=== PATIENT | female | born 1970 | race Caucasian/White ===

== ENCOUNTER 2017-08-16 00:11 | Emergency (ER) | payer OTHER ==
[2017-08-16] MEDS ORDERED: NS 0.9% 1000 ML* 1,000 ML IV ONE ×2 (00:34→02:18)
[2017-08-16] MEDS ORDERED: Digoxin IV* 0.5 MG/2 ML AMP (0.25 MG/ML) IV SLOW PU ONE (00:36)
[2017-08-16] MEDS ORDERED: Diltiazem IV* 5 MG/ML 5 ML VIAL (for loading dose/IV Push) (25 MG) IV SLOW PU ONE (00:36)
[2017-08-16 00:51] LABS: ABS Basophils 0.1 10^3/ul (0-0.2); ABS Eosinophils 0.1 10^3/ul (0-0.6); ABS Lymphocytes 3.7 10^3/ul (1.0-4.8); ABS Monocytes 0.7 10^3/ul (0-0.8); ABS Neutrophils 4.4 10^3/ul (1.5-7.7); ABS Nucleated RBC 0 10^3/ul; Eosinophil % 1.2 % (0-6); Hematocrit 42 % (35-47); Hemoglobin 14.8 g/dl (12.0-16.0); Lymphocyte % 40.9 % (25-47); Mean Corpuscular HGB Conc 35 g/dl (31-36); Mean Corpuscular Hemoglobin 33 pg (27-31); Mean Corpuscular Volume 94 fL (80-97); Mean Platelet Volume 8 um3 (7.4-10.4); Nucleated Red Blood Cells % 0.1; Platelet Count 240 10^3/ul (150-450); Red Blood Count 4.49 10^6/ul (4.0-5.4); Red Cell Distribution Width 13 % (10.5-15)
[2017-08-16 01:05] LABS: INR 0.82 (0.77-1.02)
[2017-08-16 01:06] LABS: EGFR Non-African American 69.5 (>60)
[2017-08-16] MEDS ORDERED: Potassium Chlor TAB* 20 MEQ TAB.ER PO ONE (02:14)
[2017-08-16] MEDS ORDERED: Midazolam* 1 MG/ML 5 ML VIAL (5 MG) SLOW PUSH ONE (03:19)
[2017-08-16] MEDS ORDERED: fentaNYL* 50 MCG/ML 2 ML VIAL (100 MCG VIAL) IV SLOW PU ONE (03:20)
[2017-08-16 04:46] VITALS: BP 108/68
--- NOTE | 2017-08-16 04:49 | ED ---
Jacqueline Acevedo Julia, scribed for Jamilah Robins MD on 08/16/17 at 0032 . Palpitations / Dysrhythmia - HPI Summary HPI Summary: This patient is a 47 year old F presenting to [facility] with a chief complaint of palpitations since 22:00 08/15/17. Patient reports sensation of heart racing. Patient denies pain and SOB. Symptoms aggravated by nothing. Symptoms alleviated by nothing. Patient does not regularly use medication other than oral contraceptives. She states no caffeine, cold medicine, or alcohol use. Patient has history of PVCs about three years ago. - History of Current Complaint Chief Complaint: EDDysrhythmPalp Time Seen by Provider: 08/16/17 00:26 Hx Obtained From: Patient Onset/Duration: Sudden Onset, Lasting Hours Timing: Constant Character: Fast Aggravating: Nothing Alleviating: Nothing Related History: Similar Episode/Dx as - history of PVCs three years ago - Allergy/Home Medications Allergies/Adverse Reactions: Allergies Allergy/AdvReac Type Severity Reaction Status Date / Time No Known Allergies Allergy Verified 08/16/17 00:13 PMH/Surg Hx/FS Hx/Imm Hx Cardiovascular History: Reports: Other Cardiovascular Problems/Disorders - PVCs EENT History: Denies: Hx Deafness - Cancer History Hx Chemotherapy: No Hx Radiation Therapy: No Infectious Disease History: No Infectious Disease History: Denies: Traveled Outside the [place] in Last 30 Days - Family History Known Family History: Positive: Cardiac Disease - a-fib mother and father - Social History Alcohol Use: None Substance Use Type: Denies: Excessive Caffeine Review of Systems Positive: Palpitations. Negative: Chest Pain Negative: Shortness Of Breath All Other Systems Reviewed And Are Negative: Yes Physical Exam Triage Information Reviewed: Yes Vital Signs On Initial Exam: Initial Vitals Temp Pulse Resp BP Pulse Ox 98 F 40 18 127/87 99 08/16/17 00:13 08/16/17 00:13 08/16/17 00:13 08/16/17 00:13 08/16/17 00:13 Vital Signs Reviewed: Yes Skin: Positive: Skin Color Reflects Adequate Perfusion Head/Face: Positive: Normal Head/Face Inspection Eyes: Positive: Normal ENT: Positive: Normal ENT inspection Respiratory/Lung Sounds: Positive: Clear to Auscultation, Breath Sounds Present Cardiovascular: Positive: Tachycardia - irregular Abdomen Description: Positive: Nontender Musculoskeletal: Positive: Normal Neurological: Positive: Normal Psychiatric: Positive: Normal AVPU Assessment: Alert Diagnostics - Vital Signs Vital Signs Temp Pulse Resp BP Pulse Ox 08/16/17 00:13 98 F 40 18 127/87 99 - Laboratory Result Diagrams: 08/16/17 00:36 08/16/17 00:36 Lab Statement: Any lab studies that have been ordered have been reviewed, and results considered in the medical decision making process. - EKG 00:19 Cardiac Rate: Tachycardia - at 144 BPM EKG Rhythm: Atrial Fibrillation EKG Interpretation: Normal axis. Normal interval. Non specific ST-T waves 3:39 Cardiac Rate: NL - at 65 BPM EKG Rhythm: Sinus Rhythm EKG Interpretation: Normal axis. Normal interval. No ischemic changes. Course/Dx - Course Course Of Treatment: Patient presents with palpitaions and tacycardia. Pt has hx of PVCs. Patient was a-fib upon arrival 1st EKG reveals tacycardia and a- fib. Second EKG was improved with sinus rhythm at 65 bpm. Patient was given Digon, Diltiazem, Fentayl, Midazolm, Potassium, and IV fluids. - Diagnoses Provider Diagnoses: Paroxysmal A-fib Discharge - Discharge Plan Condition: Stable Disposition: HOME Patient Education Materials: A-fib (Atrial Fibrillation) (ED) Referrals: Juanita Nesbitt MD [Primary Care Provider] - Additional Instructions: RETURN TO THE EMERGENCY DEPARTMENT FOR CHANGING OR WORSENING SYMPTOMS. The documentation as recorded by the Jacqueline pacheco Julia accurately reflects the service I personally performed and the decisions made by , Jamilah Robins MD.
== END 2017-08-16 04:52 | disposition home or self-care (01) ==
LOC: ED 00:11
DX: I48.0 Paroxysmal atrial fibrillation (principal); Z86.79 Personal history of other diseases of the circulatory system; Z82.49 Family history of ischemic heart disease and other diseases of the circulatory system
CPT/HCPCS: 36415; 80053; 83735; 84443; 84484; 85025; 85610; 85730; 93005; 96361; 96374; 96375; 99284; A9270-GY; J1160